=== PATIENT | female | born 1985 | race Caucasian/White ===

== ENCOUNTER → 2017-11-22 14:32 | Outpatient (REF) | payer OTHER, SELFPAY | LOC: LAB 14:32 | PROVIDERS: Family Provider Family Medicine; PCP Family Medicine; Visit Provider Nurse Practitioner Family | DX: J02.9 Acute pharyngitis, unspecified (principal) | CPT/HCPCS: 87081 ==

== ENCOUNTER → 2018-12-02 13:02 | Outpatient (CLI) | payer OTHER, SELFPAY ==
[2018-12-02 13:30] LABS: Add Manual Diff / Slide Review NO; Basophils Absolute Auto 0 /uL (0-100); Basophils Percent Auto 0.4 % (0-2); Eosinophils Absolute Auto 0 /uL (0-450); Eosinophils Percent Auto 0.3 % (2-4); Hematocrit 39.8 % (36-46); Hemoglobin 13.5 g/dL (12.0-16.0); Lymphocytes Absolute Auto 1500 /uL (1100-4500); Mean Corpuscular HGB Conc 33.9 % (30-36); Mean Corpuscular Hemoglobin 29.8 PG (26-34); Mean Corpuscular Volume 87.8 fL (80-100); Monocytes Absolute Auto 500 /uL (0-900); Monocytes Percent Auto 6.2 % (3-14); Neutrophils Absolute Auto 6500 /uL (1500-7000); Neutrophils Percent Auto 75.1 % (50-75); Platelet Count 264 X10^3/uL (150-400); Red Blood Cell Count 4.54 X10^6/uL (4.0-5.2); Red Cell Distribution Width 12.9 % (11.6-14.8); White Blood Cell Count 8.6 X10^3/uL (4.5-11.0)
[2018-12-02 14:30] LABS: Glucose 81 mg/dL (70-100)
[2018-12-02 16:27] LABS: Hepatitis B Surface Antigen NEGATIVE s/c (NEGATIVE)
[2018-12-02 16:28] LABS: Rubella Antibody IgG 48.6 IU/mL (>15)
[2018-12-02 16:48] LABS: HIV 1 & 2 Ab/Ag 4th Gen Combo NEGATIVE (NEGATIVE); Hep C Virus Ab w/Reflex Quant NEGATIVE s/c (NEGATIVE)
[2018-12-06 15:33] LABS: RPR Screen Nonreactive (Nonreactive)
== END ==
PROVIDERS: PCP Family Medicine
DX: Z34.81 Encounter for supervision of other normal pregnancy, first trimester (principal)
CPT/HCPCS: 36415; 80055; 82947; 83036; 86787; 86803; 86850; 86900; 86901; 87389

== ENCOUNTER → 2018-12-12 16:30 | Outpatient (CLI) | payer OTHER, SELFPAY ==
[2018-12-12 17:44] LABS: Appearance Urine UA CLEAR; Bilirubin Urine UA NEGATIVE (NEGATIVE); Color Urine UA YELLOW; Glucose Urine UA NEGATIVE (Negative); Ketones Urine UA NEGATIVE (NEGATIVE); Leukocyte Esterase Urine UA NEGATIVE (NEGATIVE); Nitrite Urine UA NEGATIVE (Negative); Occult Blood Urine UA NEGATIVE (Negative); Protein Urine UA NEGATIVE (Negative); Urobilinogen Urine UA 0.2 E.U./dL (0.2); pH Urine UA 6.5 (4.5-8.0)
== END ==
PROVIDERS: PCP Family Medicine
DX: Z34.81 Encounter for supervision of other normal pregnancy, first trimester (principal)
CPT/HCPCS: 81003

== ENCOUNTER → 2019-01-06 17:03 | Outpatient (CLI) | payer OTHER, SELFPAY ==
[2019-01-11 10:01] LABS: Sequential Screen 1st Trimeste FINAL RESULT PENDING
== END ==
PROVIDERS: PCP Family Medicine
DX: Z36.0 Encounter for antenatal screening for chromosomal anomalies (principal); Z3A.13 13 weeks gestation of pregnancy; Z34.81 Encounter for supervision of other normal pregnancy, first trimester; Z36.82 Encounter for antenatal screening for nuchal translucency
CPT/HCPCS: 36415; 84163; 84702

== ENCOUNTER → 2019-02-10 16:31 | Outpatient (CLI) | payer OTHER, SELFPAY ==
[2019-02-15 13:17] LABS: Sequential Screen 2nd Trimeste SCREEN NEGATIVE
== END ==
PROVIDERS: PCP Family Medicine
DX: Z34.82 Encounter for supervision of other normal pregnancy, second trimester (principal); Z3A.17 17 weeks gestation of pregnancy
CPT/HCPCS: 36415; 82105; 82677; 84163; 84702; 86336

== ENCOUNTER → 2019-04-03 09:43 | Outpatient (CLI) | payer OTHER, SELFPAY ==
[2019-04-03 12:06] LABS: Hematocrit 35.5 % (36-46); Hemoglobin 12.2 g/dL (12.0-16.0)
[2019-04-03 12:41] LABS: GTT (PREG) 1 Hour PP 50gm Dose 84 mg/dL (76-139)
== END ==
PROVIDERS: PCP Family Medicine
DX: O26.899 Other specified pregnancy related conditions, unspecified trimester (principal); Z34.82 Encounter for supervision of other normal pregnancy, second trimester; Z67.91 Unspecified blood type, Rh negative
CPT/HCPCS: 36415; 82950; 85014; 85018; 86850

== ENCOUNTER 2019-07-13 05:54 | Inpatient (IN) | payer OTHER, SELFPAY ==
[2019-07-13 07:32] LABS: Add Manual Diff / Slide Review NO; Basophils Absolute Auto 0 /uL (0-100); Basophils Percent Auto 0.2 % (0-2); Eosinophils Absolute Auto 0 /uL (0-450); Eosinophils Percent Auto 0.4 % (2-4); Hematocrit 32.4 % (36-46); Hemoglobin 10.6 g/dL (12.0-16.0); Lymphocytes Absolute Auto 1500 /uL (1100-4500); Lymphocytes Percent Auto 16.1 % (25-40); Mean Corpuscular HGB Conc 32.7 % (30-36); Mean Corpuscular Hemoglobin 25.3 PG (26-34); Mean Corpuscular Volume 77.3 fL (80-100); Monocytes Absolute Auto 600 /uL (0-900); Monocytes Percent Auto 6.7 % (3-14); Neutrophils Absolute Auto 7300 /uL (1500-7000); Neutrophils Percent Auto 76.6 % (50-75); Platelet Count 265 X10^3/uL (150-400); Red Blood Cell Count 4.19 X10^6/uL (4.0-5.2); Red Cell Distribution Width 15.5 % (11.6-14.8); White Blood Cell Count 9.5 X10^3/uL (4.5-11.0)
[2019-07-13] MEDS: FAMOTIDINE 20 MG/50 ML PIGGYBACK 200 MG IV (07:55)
[2019-07-13] MEDS: CEFOTETAN 2 GM/50 ML PIGGYBACK IV (08:00)
[2019-07-13] MEDS: LACTATED RINGERS 1,000 ML 42 ML IV (08:20)
--- NOTE | 2019-07-13 08:29 | SUR.OPER ---
Supine on Padded OR bed, head on pillow, safety belt at thigh, arms secured on padded arm boards at <90 degrees abduction. Bump under right buttock. Legs uncrossed with pillow under knees, gel pad to heels, tape over blanket to lower legs.
[2019-07-13 08:55] VITALS: BP 115/95; PULSE 95; RESP 18; TEMP 36.6; O2SAT 99
--- NOTE | 2019-07-13 08:55 | P.OP_ITS ---
Operative Date/Time/Diagnoses Date of procedure: 07/13/19 Time of procedure: 08:56 Pre-op diagnosis: Term intrauterine History of prior sections Post-op diagnosis: same Procedure & Clinicians Procedure: Procedures Operation Date: 07/13/19 07:45 Actual Procedures Side Surgeon p Repeat Section Mark Thornton MD Indications: Term intrauterine History of prior sections Surgeon: Mark Thornton Electrotherapist: Yara Guadalupe Anesthesia Type: Spinal Operative Notes Findings: Live-born female Normal uterus tubes and ovaries Closure Type: primary Specimen(s): none Applied: catheter Estimated blood loss (mL): 400 Blood products transfused: none Procedure in detail: The patient was placed supine upon the operating table in spinal anesthesia was administered. The patient was then draped and prepared in usual fashion. A transverse incision was made through the old scar. The subcutaneous tissue was incised to the fascia. The fascia was incised transversely without difficulty. In the peritoneal cavity open. A bladder blade was then set in place. In perineum over the lower uterine segment was incised and taken down to prevent bladder trauma. A bladder blade was then replaced. A transverse scoring incision was made across the lower uterine segment. Perforating incision was made centrally. This was white min blood finger dissection. Membranes were ruptured the fluid was clear. A live born female with scores of eight at 1 minutes and nine at 5 minutes was delivered without difficulty. The cord was clamped and the baby shown to the parents and handed to the nurses at the warmer. The pronounced the infant normal in good condition. The placenta was removed without difficulty and all membranes were massaged from the endometrial cavity. Lateral edges of the incision were grasped with [place] clamps. Incision was closed in imbricating fashion using a two layer technique with 0 chromic suture. No bleed ing points were seen. The visceral perineum was closed with running two 0 chromic suture. Tubes and ovaries appeared to be normal. The parietal perineum was grasped and closed with a running two 0 chromic suture. Pyramidalis muscles were reapproximated in the midline using two 1. Vicryl sutures. The fascia was then closed with two continuous 1. Vicryl sutures. Subcutaneous tissue was undermined superiorly and inferiorly to prevent retraction of the skin edges. The subcutaneous tissue was closed in two layers. 1st layer was closed with interrupted three 0 Vicryl cc. 2nd layer was closed with a running horizontal mattress three 0 Vicryl suture. The skin was further approximated with Steri- Strips. An Aquacel dressing was placed. All blood was massaged from the uterus. Says the urine was clear at the end of the procedure. Patient was taken Complications: none Post-operative Condition: stable Disposition: PACU Plan for aftercare: Routine OB care
[2019-07-13 09:00] VITALS: BP 109/78; PULSE 104; RESP 14; O2SAT 100
[2019-07-13 09:05] VITALS: BP 116/71; PULSE 91; RESP 11; O2SAT 100
--- NOTE | 2019-07-13 09:10 | SUR.PHASEI ---
Report called to Husam
[2019-07-13 09:11] VITALS: BP 113/72; PULSE 89; RESP 20; O2SAT 100
[2019-07-13 09:15] VITALS: BP 107/66; PULSE 91; RESP 17; O2SAT 100
--- NOTE | 2019-07-13 09:29 | SUR.PHASEI ---
Patient transferred to the [facility], vs stable. Report given to Husam. Fundus checked with RN. Pitocin infusing to LT forearm IV, site wnl. Spinal at L1.
[2019-07-13] MEDS: ONDANSETRON 4 MG/2 ML INJ IV (10:00)
[2019-07-13] MEDS: HYDROCODONE/ACET 5/325 TABLET 1 TAB PO (10:00)
[2019-07-13 12:48] VITALS: BP 117/60
[2019-07-13] MEDS: HYDROCODONE/ACET 5/325 TABLET 2 TAB PO ×3 (13:44→21:47)
[2019-07-14] MEDS: HYDROCODONE/ACET 5/325 TABLET 2 TAB PO ×3 (01:36→14:10)
[2019-07-14 05:10] LABS: Hematocrit 29.4 % (36-46); Hemoglobin 9.6 g/dL (12.0-16.0)
--- NOTE | 2019-07-14 07:35 | PM.OBDS.1 ---
Discharge Providers Provider Date of admission: 07/13/19 05:54 Discharge Date: 07/14/19 Primary care physician: Tato Foster MD Consults: 07/13/19 09:42 Consult to Dental Scheduling Coordinator Routine Comment: Discharge provider: Mark Thornton MD Summary Hospital Course Date Patient Seen: 07/14/19 Peripartum Data Infant Delivery Method: Section Procedures: Primary low segment section v Spinal anesthesia and the abdomen is that complications: none Status at Discharge Cognitive/behavioral status at discharge: oriented Functional status at discharge: independent ambulation Overall status at discharge: patient is progressing back to baseline Time Spent with Patient Time attestation: Total time spent providing and/or coordinating discharge services: Time spent: Less than 30 minutes Objective Labs Result Diagrams: 07/14/19 04:39 Labs: Laboratory Results - last 24 hr 07/13/19 07/14/19 06:30 04:39 Hgb 9.6 L Hct 29.4 L Blood Type O Negative Antibody Screen Negative Exam Vital Signs (past 8 hours): Oxygen Delivery Method Room Air Narrative Exam Narrative: Fundus U minus two Incision with Aquacel dressing Low give very scanned Discharge Plan Discharge Plan Patient Disposition: Home Discharge orders & Medications Prescriptions: New hydrocodone-acetaminophen 5-325 mg Tablet 1 tab PO Q4HR PRN (Reason: Pain, Moderate (4-6)) Qty: 10 RF: 0 docusate sodium 250 mg Capsule 250 mg PO DAILY Qty: 12 RF: 0 Hod-I-Gnhtaf Cream 1 applic topical PRN PRN (Reason: ) Qty: 1 RF: 0 ferrous gluconate 324 mg (38 mg iron) Tablet 324 mg PO DAILY Qty: 30 RF: 0 Prenatabs Rx 29 mg iron- 1 mg Tablet 1 tab PO DAILY Qty: 30 RF: 0 Continued omeprazole 20 mg capsule,delayed release(DR/EC) 20 mg PO DAILY Qty: 30 RF: 0 Follow up/Referrals: Tato Foster MD [Primary Care Provider] - Mark Thornton MD [Physician] - 1 Week (See one week for Aquacel dressing removal) Discharge Health Status Health Concerns: The none Multidrug resistant organism: No MDRO Diet/Activity/Treatments Diet: Diet as Tolerated Activity: Up ad juana the will see her Skin/Wound/Dressing Care Skin care: Routine wound care Report to your healthcare provider any signs of infection, such as:: chills, fever, increased pain, unusual drainage and unusual redness Dressing: Aquacel dressing number Visit Report/Discharge Packet Instructions: DI for Prescription Opioid Use Discharge Data Primary Care Provider: Tato Foster
[2019-07-14 08:32] VITALS: BP 119/74; PULSE 81; RESP 16; TEMP 37.1
[2019-07-14] MEDS: DOCUSATE 250 MG CAPSULE PO (09:55)
[2019-07-14] MEDS: PRENATAL VIT,CALC/IRON/FOLIC 1 TABLET 1 TAB PO (09:56)
[2019-07-14] MEDS: FERROUS GLUCONATE 324 MG TABLET PO (09:56)
== END 2019-07-14 14:15 | disposition home or self-care (01) | DRG 787 ==
PROVIDERS: PCP Family Medicine
PROC: 10D00Z1 Extraction of Products of Conception, Low, Open Approach (ICD-10-PCS; CPT 59514; principal; 2019-07-13 07:45)
DX: O34.219 Maternal care for unspecified type scar from previous cesarean delivery (principal); D62 Acute posthemorrhagic anemia; Z3A.39 39 weeks gestation of pregnancy; Z37.0 Single live birth
CPT/HCPCS: 36415; 59025; 59050; 59514; 59515; 85014; 85018; 85025; 86850; 86900; 86901; J2405; J2590; J2765

== ENCOUNTER → 2022-06-29 15:38 | Outpatient (CLI) | payer OTHER, SELFPAY ==
--- NOTE | 2022-06-29 15:40 | DI.US.S_ITS ---
PROCEDURE: US PELVIC COMPLETE INDICATIONS: ABNORMAL BLEEDING TECHNIQUE: Real-time scanning was performed of the pelvic organs, with image documentation. Additional endovaginal scanning was necessary due to incomplete visualization of the adnexal and endometrial structures by transabdominal scanning. COMPARISON: [facility], US, US OB <= 14 WEEKS FETUS, 01/06/2019, 16:46. FINDINGS: Uterus: Uterus is retroverted and normal in size at 6.9 x 5.1 x 4.4 cm. The myometrium is homogeneous. The endometrium measures 13 mm combined thickness. Ovaries: The right ovary measures 4.7 x 4.3 x 3.5 cm, with a calculated ovarian volume of 37 cc. A cyst is present measuring 4.1 x 3.7 x 2.9 cm, majority of the cyst is anechoic however a shadowing echogenic nodule is present. A 2.5 cm simple appearing adnexal cyst is also present, possibly a paraovarian cyst. The left ovary measures 3.8 x 2.9 x 2.2 cm, with a calculated ovarian volume of 13 cc. Less than 12 follicles can be seen in each ovary. Other: No pathologic free abdominal or pelvic fluid. Prominent adnexal vessels present bilaterally. IMPRESSION: 1. Normal thickness endometrium without a focal endometrial lesion or abnormal endometrial vascularity identified. 2. A 4.1 cm right ovarian cyst is present with an echogenic nodule demonstrated raising the possibility of a dermoid cyst. Gynecology consultation may be helpful to direct further management. 3. Prominent adnexal vessels are present bilaterally, a nonspecific finding that can be seen in asymptomatic patients or those with pelvic congestion. We strive to produce accurate, complete, and clear reports of imaging services. To assist us in improving patient care, this report was composed using standard report templates and voice recognition software. Therefore, it may contain abnormal punctuation, insertions and/or omissions. Occasional wrong-word or sound-alike substitutions may occur. Though we review the report and make efforts to correct it, we do recommend that the report be read carefully in proper context to recognize any text inaccuracies. Dictated by: Michel Gunn M.D. on 06/30/2022 at 21:29 Approved by: Michel Gunn M.D. on 06/30/2022 at 21:40
== END ==
PROVIDERS: PCP Family Medicine; Referring Provider Family Medicine; Visit Provider Family Medicine
DX: N93.9 Abnormal uterine and vaginal bleeding, unspecified (principal); N83.201 Unspecified ovarian cyst, right side; N94.89 Other specified conditions associated with female genital organs and menstrual cycle
CPT/HCPCS: 76830; 76856; 93975

== ENCOUNTER → 2022-07-10 16:24 | Outpatient (CLI) | payer OTHER, SELFPAY ==
[2022-07-10 17:35] LABS: Mean Corpuscular HGB Conc 33.4 % (30-36); Mean Corpuscular Hemoglobin 29.3 PG (26-34); Mean Corpuscular Volume 87.9 fL (80-100); Platelet Count 234 X10^3/uL (150-400); Red Blood Cell Count 4.78 X10^6/uL (4.0-5.2); Red Cell Distribution Width 13.5 % (11.6-14.8); White Blood Cell Count 6.6 X10^3/uL (4.5-11.0)
[2022-07-10 17:54] LABS: Add Manual Diff / Slide Review YES
[2022-07-10 18:46] LABS: Neutrophils Absolute Manual 3894 /uL (3000-5900); RBC Morphology Normal Morphology; Total Cells Counted 100
[2022-07-10 19:06] LABS: TSH w/ Reflex to FT4 2.47 uIU/mL (0.47-4.68)
[2022-07-14 05:02] LABS: Cancer Antigen 125 14.8 U/mL (0-35)
[2022-07-14 11:23] LABS: Human Epididymis Prot 4 48.3 pmol/L (0.0-61.2)
== END ==
PROVIDERS: PCP Family Medicine; Referring Provider Specialist; Visit Provider Specialist
DX: N83.209 Unspecified ovarian cyst, unspecified side (principal); N92.1 Excessive and frequent menstruation with irregular cycle
CPT/HCPCS: 36415; 84443; 85007; 85025; 86304; 86305

== ENCOUNTER 2022-09-17 06:44 | Day surgery (SDC) | payer OTHER, SELFPAY ==
[2022-07-23 13:13] VITALS: BMI 19.5
--- NOTE | 2022-09-17 | PATH_ITS ---
[facility] Accession Number: [id number] No. of containers..01 Tissue . 01 Material submitted: . ovary - RIGHT FALLOPIAN TUBE, RIGHT OVARY, LEFT PARATUBAL CYST . 01 Diagnosis: Right Fallopian Tube, Right Ovary, Left Tubal Cyst, Right Salpingectomy, Right Oophorectomy (14 grams), and Left Cystectomy: Complete cross-sections of fallopian tube; negative for significant atypia. Fragments of ovary (weight 14 grams) with patchy stromal thecosis and with scattered benign follicular cysts. Detached benign paratubal cyst (24 mm). [facility] 09/25/2022 1146 Local . 01 Electronically signed: . Phoebe Juarez MD, Pathologist NPI- [id number] . 01 Gross description: . The specimen is received in formalin labeled with the patient's name, , and right fallopian tube and ovary left paratubal cyst, and consists of a single fimbriated fallopian tube measuring 6.5 x 0.8 cm with peter, roughened serosa and no cystic structures identified. Sectioning reveals an unremarkable stellate lumen. The ovary is fragmented, weighing 14 g and aggregating to 5.6 x 5.3 x 2.2 cm. The presumed external surface is peter and wrinkled and is inked blue. The presumed internal surface of the disrupted ovary is smooth and wrinkled with no excrescences identified. Sectioning reveals a peter, soft cut surface with multiple smaller cystic structures measuring up to 0.3 cm in greatest dimension filled with serous fluid, with no excrescences identified. A peter, cerebriform, irregular fragment is identified measuring 2.5 x 1.9 x 0.9 cm and is inked green. Sectioning reveals a pale yellow to hemorrhagic cut surface. A separate thin, smooth-walled cystic structure consistent with paratubal cyst measuring 2.4 x 1.9 x 1.5 cm is identified filled with peter serous fluid. Candy Wrapping Machine Operator sections are submitted as follows: A1: Fallopian tube to include one-half of bisected fimbriae and cross sections. A2-A4: Candy Wrapping Machine Operator fragmented ovary. A5: Entire paratubal cyst. ([id number]) /FRR 09/19/2022 1324 Local . 01 Pathologist provided ICD-10: N83.8, D27.0 . 01 CPT . 730233 Specimen Comment: A courtesy copy of this report has been sent to [phone] Performed at: 01 [facility] [address] [place] [address] [address] [facility], [place], [place] [id number] MD Gómez Valentin MD Phone: [phone]
[2022-09-17 07:10] VITALS: BP 128/86; PULSE 99; RESP 18; TEMP 36.9; O2SAT 100; BMI 18.6
[2022-09-17] MEDS: LACTATED RINGERS 1,000 ML 42 ML IV ×2 (07:10→09:39)
--- NOTE | 2022-09-17 07:23 | SUR.OPER ---
Lithotomy on padded OR bed, head on pillow, arms secured on padded arm boards at <90 degrees abduction. Legs secured in padded yellow fins stirrups.
--- NOTE | 2022-09-17 07:43 | P.HPOB_ITS ---
History of Present Illness History of Present Illness Reason for admission: other (Right ovarian dermoid, right paratubal cyst) Narrative: Keri Muse is a 36 year old female 5 para 5 who presents for a laparoscopic right salpingo-oophorectomy due to a right ovarian dermoid and a right paratubal cyst. [facility] Medical History (Updated 09/09/22 @ 15:00 by Robyn Kay RN) History of COVID-19 (07/2022) Surgical History (Updated 07/10/22 @ 16:27 by Tori Givens MD) History of third molar tooth extraction Status post delivery (06/07/09) Status post delivery (03/25/12) Status post delivery (09/06/14) Status post delivery (01/25/17) Status post dilation and curettage Social History household members: spouse and children Smoking Status: Never smoker alcohol intake: never Meds Home Medications and Allergies Allergies Allergy/AdvReac Type Severity Reaction Status Date / Time oxycodone [OXYCODONE] Allergy Intermediate VOMITING Verified 09/17/22 07:06 Sulfa (Sulfonamide Allergy Intermediate RASH Verified 09/17/22 07:06 Antibiotics) [SULFA (SULFONAMIDE ANTIBIOTICS)] ibuprofen [IBUPROFEN] Allergy Mild VAGINAL Verified 09/17/22 07:06 BLEEDING Exam Vital Signs (past 8 hours): - 09/17/22 07:10 Temperature 98.5 F Pulse Rate 99 H Respiratory Rate 18 Blood Pressure 128/86 Pulse Oximetry 100 Oxygen Delivery Method Room Air Oxygen Delivery Method Room Air Narrative Exam Narrative: HEENT: No thyromegaly, no anterior cervical or supraclavicular lymphadenopathy. Lungs:Clear to auscultation bilaterally, no wheezes. Cardiovascular: Regular rate and rhythm, no murmurs, rubs, or gallops. Abdomen: Well-healed Pfannenstiel scars. No hepatosplenomegaly. No masses palpable. External genitalia: Normal Vagina: Normal Cervix: Normal Bimanual exam: 6 Week size uterus. Mobile. Right adnexal fullness and tenderness Extremities: No edema Assessment & Plan Assessment & Plan narrative: Assessment: 36-year-old 5 para 5 with a right ovarian dermoid cyst and right paratubal cysts Plan: Laparoscopic right salpingo-oophorectomy The risks, benefits, and alternatives to the procedure were explained to the patient. The risks including bleeding, infection, injury to the bowel, bladder, or ureters. She understands these risks and agrees to proceed. A full par Q was held and consent form was signed. Time Spent With Patient Time with patient: less than 30 minutes
--- NOTE | 2022-09-17 07:45 | PM.PREOP ---
Pre-operative Note Interval Note History & Physical reviewed/Exam performed by Physician: Yes Changes to H&P: No H&P completed within 30 days and has changed as indicated here:: 09/17/22
[2022-09-17] MEDS: BUPIVACAINE 0.5% (PF) 10 ML VIAL 30 ML INJ (08:54)
[2022-09-17] MEDS: EPINEPHrine 1 MG/ML 0.3 MG IM (08:55)
[2022-09-17 09:17] VITALS: BP 121/67; PULSE 131; RESP 12; TEMP 36.4; O2SAT 99
[2022-09-17 09:22] VITALS: BP 125/70; PULSE 128; RESP 16; O2SAT 100
[2022-09-17 09:27] VITALS: BP 123/67; PULSE 105; RESP 12; O2SAT 100
[2022-09-17] MEDS: METOCLOPRAMIDE 10 MG/2 ML INJ IV (09:29)
[2022-09-17 09:32] VITALS: BP 113/77; PULSE 101; RESP 16; TEMP 36.3; O2SAT 100
[2022-09-17] MEDS: OXYCODONE/ACETAMINOPHEN 5/325 TABLET 1 TAB PO (09:40)
--- NOTE | 2022-09-17 09:40 | SUR.PHASEI ---
Received to PACU to after general anesthesia. Airway patent, self maintained. Report from Dr Phillip and circulating RN.
[2022-09-17 09:44] VITALS: BP 118/71; PULSE 94; RESP 12; TEMP 36.4; O2SAT 100
--- NOTE | 2022-09-17 09:47 | P.OP_ITS ---
Operative Date/Time/Diagnoses Date of procedure: 09/17/22 Time of procedure: 09:47 Pre-op diagnosis: Right ovarian dermoid Right paratubal cyst Post-op diagnosis: same Procedure & Clinicians Procedure: Procedures Operation Date: 09/17/22 07:45 Actual Procedure Side Surgeon p Laparoscopic Salpingo-oophorectomy, WITH LEFT PARATUBAL CYSTECTOMY Right Riya Dangelo MD Indications: Right ovarian dermoid Right paratubal cyst Surgeon: Riya Dangelo Anesthesia Type: General and Local Operative Notes Findings: 7 week size anteverted uterus 5 cm right ovarian dermoid cyst 2 cm right paratubal cyst 1 cm left paratubal cyst Closure Type: primary Specimen(s): right tube & ovary and other (Left paratubal cysts) Estimated blood loss (mL): 5 Blood products transfused: none Procedure in detail: After informed consent was obtained, the patient was taken to the operating room where she was placed in the dorsal supine position. After adequate general endotracheal anesthesia was achieved, she was placed in the dorsal lithotomy position, and prepped and draped in the usual sterile fashion. A time-out was performed. A bivalve speculum was placed into the vagina and the anterior lip of the cervix was grasped with a single-tooth tenaculum. The cervical os was sequentially dilated until the Zumi uterine manipulator could pass easily into the endometrial cavity. The single-tooth tenaculum was removed from the anterior lip of the cervix. The bivalve speculum was removed from the vagina. Attention was then turned to the abdomen where 6 cc of 0.5% Marcaine with epinephrine were injected in the umbilical fold. A 5 mm incision was made. The Veress needle was placed into the peritoneal cavity, and its placement confirmed by aspiration and drop test. The abdominal cavity was insufflated with 3.2 L of CO2. The Veress needle was removed, and a 5 mm trocar was placed without difficulty. Two other 5 mm incisions were made 4 cm lateral to the midline after 6 cc of 0.5% Marcaine with epinephrine were injected. Two 5 mm trocars were placed under direct visualization. The right tube and ovary were grasped with an atraumatic grasper. The infundibulopelvic ligament on the right side was cauterized and cut with the power seal. The mesosalpinx was cauterized and cut all the way down to the cornua of the uterus. The right tube and ovary were placed into the anterior cul-de-sac. On the left side there was a 1 cm paratuba l cyst. This was grasped with an atraumatic grasper. Using the power seal, the paratubal cyst was cauterized and cut. Care was taken to avoid the left tube. The left paratubal cyst was removed through the left lateral trocar. 6 cc of 0.5% Marcaine with epinephrine were injected above the suprapubic incision. A 12 mm incision was made. A 12 mm trocar was placed under direct visualization. An endobag was placed through the suprapubic trocar and the right tube and ovary were placed into the bag. The trocar was removed and the edges of the bag were brought up through the incision. An Rebel was placed into the bag. The ovary and tube were morcellated in 5 pieces. The bag with the Rebel were removed from the abdomen. The abdomen was re-insufflated with 3.2 L of CO2. The pelvis was examined and was found to be hemostatic. The instruments were removed from the abdomen. The CO2 was allowed to escape. The trocars were removed from the abdomen. The suprapubic incision was closed with 0 Vicryl in a running fashion on the fascia. All of the incisions were closed with 4-0 Monocryl in a subcuticular fashion. Steri-Strips and Allevyn dressings were placed. The Zumi uterine manipulator was removed from the uterus. Sponge, lap, and instrument counts were correct x2. The patient tolerated the procedure well, and was taken to PACU in stable condition. Complications: none Post-operative Condition: stable Disposition: PACU Plan for aftercare: Home after recovery
== END 2022-09-17 10:19 | disposition home or self-care (01) ==
PROVIDERS: PCP Family Medicine; Referring Provider Obstetrics & Gynecology; Visit Provider Obstetrics & Gynecology
PROC: (CPT 58661; principal; 2022-09-17 07:45)
DX: D27.0 Benign neoplasm of right ovary (principal); N83.8 Other noninflammatory disorders of ovary, fallopian tube and broad ligament; N85.4 Malposition of uterus
CPT/HCPCS: 58661; 58662; 81025; J0171; J1100; J1885; J2250; J2405; J2704; J2765; J3010

== ENCOUNTER → 2023-09-19 15:31 | Outpatient (CLI) | payer OTHER, SELFPAY | PROVIDERS: PCP Family Medicine; Visit Provider Physician Assistant Medical | DX: R10.9 Unspecified abdominal pain (principal) | CPT/HCPCS: 87086 ==